=== PATIENT | male | born 1995 | race Caucasian/White ===

== ENCOUNTER 2017-01-25 18:04 | Emergency (ER) | payer OTHER ==
[~2017-01-25] VITALS: Ht 180.3 cm; Wt 63.6 kg
[2017-01-25 18:30] LABS: HEMATOCRIT 38.9 % (39.0-50.0); HEMOGLOBIN 13.5 g/dl (14.0-18.0); IMMATURE GRANULOCYTES 0.3 % (0.0-1.0); MEAN CELL VOLUME 91.7 fL CALC (80.0-100.0); MEAN CORPUSCULAR HGB 31.8 pG CALC (26.0-32.0); MEAN CORPUSCULAR HGB CONC 34.7 g/L CALC (32.0-36.0); NEUT# 7.21 thou/uL (1.82-7.42); RED BLOOD COUNT 4.24 mill/uL (4.70-6.10); RED CELL DISTRI WIDTH 12.3 % (11.5-15.5)
[2017-01-25 18:53] LABS: ALBUMIN 4.3 g/dL (3.2-5.0); ALKALINE PHOSPHATASE 48 u/l (38-126); ANION GAP 15 (6-22 (CALC)); BILIRUBIN, TOTAL 0.4 mg/dL (0.0-1.4); BUN 13 mg/dL (9-20); BUN/CREATININE RATIO 19 (12-20 (CALC)); CARBON DIOXIDE 26 mmol/l (22-30); CHLORIDE 100 mmol/l (95-108); CREATININE 0.7 mg/dL (0.7-1.3); ETHYL ALCOHOL 0 mg/dl (0-30); GFR > 60 ML/MIN (>=60 (CALC)); GFR FOR AFR.AMER. > 60 ML/MIN (>=60 (CALC)); GLUCOSE 263 mg/dL (75-110); MAGNESIUM 1.7 mg/dL (1.6-2.3); POTASSIUM 4.2 mmol/l (3.5-5.1); SGOT/AST 14 u/l (17-59); SGPT/ALT 27 u/l (21-72); SODIUM 136 mmol/l (137-146); TOTAL PROTEIN 6.8 g/dL (6.3-8.2)
[2017-01-25 19:26] LABS: URINE BILIRUBIN - DIPSTICK NEGATIVE (NEGATIVE); URINE BLOOD DIPSTICK NEGATIVE (NEGATIVE); URINE CLARITY CLEAR; URINE COLOR YELLOW; URINE GLUCOSE - DIPSTICK >=1000 mg/dL (NEGATIVE); URINE KETONE NEGATIVE (NEGATIVE); URINE LEUK ESTERASE NEGATIVE (NEGATIVE); URINE NITRITE - DIPSTICK NEGATIVE (Negative); URINE PH 5.5 (4.5-8.0); URINE PROTEIN - DIPSTICK NEGATIVE (NEG-TRACE); URINE SPECIFIC GRAVITY >=1.030; URINE UROBILINOGEN - DIPSTICK 0.2 E.U./dL (0.2)
[2017-01-25 19:30] LABS: BARBITURATES NEGATIVE (NEGATIVE); COCAINE NEGATIVE (NEGATIVE); METHADONE NEGATIVE (NEGATIVE); OXCYCODONE NEGATIVE (NEGATIVE); TETRAHYDROCANNABIONOL NEGATIVE (NEGATIVE); TRICYLIC ANTIDEPRESSANTS NEGATIVE (NEGATIVE)
[2017-01-25 19:37] LABS: MYOGLOBIN 28 ng/mL (0 - 121)
[2017-01-25 23:37] VITALS: BP 116/70
== END 2017-01-25 23:37 | DRG 897 ==
LOC: ED 18:04
PROVIDERS: Emergency Medicine
DX: F13.10 Sedative, hypnotic or anxiolytic abuse, uncomplicated (principal)

== ENCOUNTER 2023-12-09 21:00 | Emergency (ER) | payer MEDICAID ==
[~2023-12-09] VITALS: Ht 180.3 cm; Wt 63.5 kg
[2023-12-09] MEDS ORDERED: SODIUM CHLORIDE 0.9% 1,000 ML IV STA (21:20)
[2023-12-09] MEDS ORDERED: Pantoprazole Sodium 40 MG VIAL (Protonix) IV STA (21:20)
[2023-12-09] MEDS ORDERED: PROMETHAZINE HCL 25 MG/ML AMP IV ONE (21:25)
[2023-12-09] MEDS ORDERED: LIDOCAINE VISCOUS 2% 15 ML UDC PO ONE (21:25)
[2023-12-09] MEDS ORDERED: KETOROLAC TROMETHAMINE 30 MG/ML SDV IV ONE (21:25)
[2023-12-09] MEDS ORDERED: ALUM & MAG HYDROX-SIMETHICONE 30 ML PO ONE (21:25)
[2023-12-09 21:36] VITALS: BP 143/88
[2023-12-09 21:39] LABS: BASO% 0.4 % (0-3); IMMATURE GRANULOCYTES 0.1 % (0.0-5.0); LYMPH% 19.4 % (15-41); MEAN CELL VOLUME 94.3 fL CALC (80.0-100.0); MEAN CORPUSCULAR HGB 31.4 pG CALC (26.0-32.0); MEAN CORPUSCULAR HGB CONC 33.3 g/dL CAL (32.0-36.0); MONO% 6.6 % (2-13); NEUT# 6.81 thou/uL (1.82-7.42); NEUT% 70.5 % (42-76); RED BLOOD COUNT 5.07 mill/uL (4.70-6.10); RED CELL DISTRI WIDTH 12.6 % (11.5-15.5)
[2023-12-09 21:41] LABS: HEMATOCRIT 47.8 % (39.0-50.0); HEMOGLOBIN 15.9 g/dl (14.0-18.0)
[2023-12-09 21:51] LABS: ALBUMIN 4.8 g/dL (3.2-5.0); BILIRUBIN, TOTAL 0.7 mg/dL (0.2-1.3); CREATININE 0.7 mg/dL (0.7-1.3); MAGNESIUM 1.8 mg/dL (1.6-2.3); POTASSIUM 3.9 mmol/l (3.5-5.1); TOTAL PROTEIN 8.2 g/dL (6.3-8.2)
[2023-12-09 22:30] VITALS: BP 152/100
[2023-12-09] MEDS ORDERED: LACTATED RINGER'S 1,000 ML IV ONE (22:35)
[2023-12-09 23:01] VITALS: BP 130/84
[2023-12-09 23:30] VITALS: BP 122/81
[2023-12-09 23:38] LABS: URINE BILIRUBIN - DIPSTICK Negative (NEGATIVE); URINE BLOOD DIPSTICK Negative (NEGATIVE); URINE GLUCOSE - DIPSTICK Negative (NEGATIVE); URINE KETONE Negative (NEGATIVE); URINE LEUK ESTERASE Negative (NEGATIVE); URINE NITRITE - DIPSTICK Negative (Negative); URINE PH 8.5 (4.5-8.0); URINE PROTEIN - DIPSTICK Negative (NEG-TRACE); URINE UROBILINOGEN - DIPSTICK 0.2 E.U./dL (0.2)
[2023-12-09 23:48] LABS: URINE COLOR Yellow
[2023-12-09] MEDS ORDERED: DICYCLOMINE HYD10 MG PO (23:54)
[2023-12-09] MEDS ORDERED: PROMETHAZINE HY25 M1 PO (23:54)
[2023-12-10] VITALS: BP 119/79
[2023-12-10 00:08] VITALS: BP 119/79
== END 2023-12-10 00:08 | disposition home or self-care (01) ==
LOC: ED 21:00
PROVIDERS: Family Medicine
DX: A08.4 Viral intestinal infection, unspecified (principal); F17.200 Nicotine dependence, unspecified, uncomplicated; Z20.822 Contact with and (suspected) exposure to COVID-19
CPT/HCPCS: J2470; Q9967